=== PATIENT | male | born 1970 ===

== ENCOUNTER 2017-04-27 22:11 | Emergency (ER) | payer OTHER ==
[~2017-04-27] VITALS: Ht 193 cm; Wt 145.1 kg
[2017-04-27] MEDS ORDERED: cloNIDine HCL 0.1 MG TAB PO ONE (22:45)
[2017-04-27 22:47] LABS: Basophils # (auto) 0.1 uL; Basophils % (auto) 1.1 % (0.0-2.0); CONDITION Y; Eosinophils # (auto) 0.2 uL; Eosinophils % (auto) 2.2 % (0.0-7.0); Hematocrit 43.4 % (41.0-53.0); Hemoglobin 14.9 g/dL (13.5-17.5); Lymphocytes # (auto) 1.8 uL; Lymphocytes % (auto) 18.5 % (10.0-50.0); Mean Corpuscular Hemoglobin 31.3 pg (28.0-32.0); Mean Corpuscular Hgb Conc. 34.4 g/dL (32.0-36.0); Mean Platelet Volume 7.6 fL (7.4-10.4); Monocytes # (auto) 0.6 uL; Monocytes % (auto) 6.6 % (0.0-12.0); Neutrophils # (auto) 6.8 uL; Neutrophils % (auto) 71.6 % (37.0-80.0); Platelet Count (auto) 380 10^3/uL (140-450); White Blood Cell 9.5 10^3/uL (4.4-10.8)
[2017-04-27 23:11] LABS: Albumin 3.6 g/dL (3.4-5.0); Anion Gap 10 (5-15); Aspartate Aminotransferase 25 U/L (15-37); Blood Urea Nitrogen 11 mg/dL (7-18); Calcium 8.3 mg/dL (8.5-10.1); Carbon Dioxide 26 mmol/L (21-32); Chloride 106 mmol/L (98-107); GFR African American 93 mL/min; GFR Non-African American 77 mL/min; Glucose 102 mg/dL (74-106); Sodium 142 mmol/L (136-145)
[2017-04-27 23:16] LABS: Alkaline Phosphatase 62 U/L (45-117); Bilirubin, Total 0.4 mg/dL (0.2-1.0); Total Protein 7.6 g/dL (6.4-8.2)
[2017-04-27 23:23] LABS: Potassium 2.7 mmol/L (3.5-5.1)
[2017-04-27] MEDS ORDERED: POTASSIUM CHL 20 Meq TABLET PO ONE (23:30)
[2017-04-28 03:45] VITALS: BP 135/68
== END 2017-04-28 05:00 | disposition home or self-care (01) ==
LOC: EDBD 22:11 → ER 22:16
DX: R51 Headache (principal); I10 Essential (primary) hypertension; E87.6 Hypokalemia
CPT/HCPCS: 36415; 70450; 71010; 80053; 83735; 84484; 85025; 93005; 94761